=== PATIENT | male | born 1945 | race Caucasian/White ===

== ENCOUNTER 2020-11-02 04:07 | Outpatient (CLI) | payer OTHER, SELFPAY ==
[2020-11-03 17:44] LABS: PSA, Ultrasensitive <0.01 ng/mL (<= 6.5)
[2020-11-07 08:53] LABS: Testosterone, Total <7.0 ng/dL (240-950)
== END 2020-11-02 04:08 | disposition home or self-care (01) ==
LOC: LBO 04:07
PROVIDERS: PCP Nurse Practitioner; Visit Provider Radiology Radiation Oncology
DX: C61 Malignant neoplasm of prostate (principal)
CPT/HCPCS: 36415; 84153; 84403

== ENCOUNTER 2021-01-29 08:59 | Outpatient (REF) | payer OTHER, SELFPAY ==
[2021-01-29 15:02] LABS: HCT 36.9 % (40.0-50.0); HGB 11.9 g/dL (13.5-17.5); MCH 31.4 pg (27.0-33.0); MCHC 32.2 % (32.0-36.0); MCV 97.4 fL (80-95); MPV 11.7 fL (8.0-11.0); Platelet Count 168 10^3/uL (130-400); RBC 3.79 10^6/uL (4.36-5.78); RDW 13.4 % (11.8-14.1); RDW-SD 48.2 fL; WBC 3.73 10^3/uL (4.4-10.8)
[2021-01-29 15:46] LABS: ALT 35 U/L (16-63); AST 30 U/L (15-37); Albumin 3.6 g/dL (3.4-5.0); Alkaline Phosphatase 71 U/L (46-116); BUN 29 mg/dL (7-18); Bilirubin, Total 0.4 mg/dL (0.2-1.0); CREATININE 0.8 mg/dL (0.70-1.30); Calculated LDL 79 mg/dL (<100); Chloride 106 mmol/L (98-107); Cholesterol 163 mg/dL (<200); Glucose 109 mg/dL (74-106); HDL Cholesterol 69 mg/dL (40-60); Potassium 4.3 mmol/L (3.5-5.1); Sodium 142 mmol/L (136-145); Total Protein 7.4 g/dL (6.4-8.2); Triglyceride 77 mg/dL (<150)
== END 2021-01-29 09:00 | disposition home or self-care (01) ==
LOC: NCHCN 08:59
PROVIDERS: PCP Nurse Practitioner; Visit Provider Nurse Practitioner
DX: I10 Essential (primary) hypertension (principal); E78.5 Hyperlipidemia, unspecified
CPT/HCPCS: 80053; 80061; 85027

== ENCOUNTER 2021-02-05 11:12 | Outpatient (REF) | payer OTHER, SELFPAY ==
[2021-02-05 15:27] LABS: Iron 76 ug/dL (65-175); Total Iron Binding Capacity 282 ug/dL (250-450); Transferrin Sat 27 % (20-55)
[2021-02-05 15:52] LABS: Ferritin 528 ng/mL (26-388); Folate 19.7 ng/mL (8.6-20.0); Vitamin B12 213 pg/mL (193-986)
== END 2021-02-05 11:13 | disposition home or self-care (01) ==
LOC: NCHCN 11:12
PROVIDERS: PCP Nurse Practitioner; Visit Provider Nurse Practitioner
DX: D64.9 Anemia, unspecified (principal)
CPT/HCPCS: 82607; 82728; 82746; 83540; 83550

== ENCOUNTER 2021-04-30 04:06 | Outpatient (CLI) | payer OTHER, SELFPAY ==
[2021-05-02 11:17] LABS: PSA, Ultrasensitive <0.01 ng/mL (<= 6.5)
[2021-05-04 10:30] LABS: Testosterone, Total 8.1 ng/dL (240-950)
== END 2021-04-30 04:07 | disposition home or self-care (01) ==
PROVIDERS: PCP Nurse Practitioner; Visit Provider Radiology Radiation Oncology
DX: C61 Malignant neoplasm of prostate (principal)
CPT/HCPCS: 36415; 84153; 84403

== ENCOUNTER 2021-09-04 19:02 | Outpatient (REF) | payer OTHER, SELFPAY ==
[2021-09-04 15:48] LABS: Abs Immature Grans 0.02 10^3/uL (0.0-0.06); Absolute Basophil Count 0.01 10^3/uL (0.0-0.2); Absolute Lymphocyte Count 0.55 10^3/uL (1.2-3.4); Absolute Monocyte Count 0.44 10^3/uL (0.1-0.8); Absolute Neutrophil Count 3.11 10^3/uL (1.2-6.7); Basophils % 0.2; Eosinophils % 2.4; HCT 35.8 % (40.0-50.0); HGB 11.5 g/dL (13.5-17.5); Immature Grans % 0.5; MCHC 32.1 % (32.0-36.0); MCV 97 fL (80-95); MPV 11.4 fL (8.0-11.0); Monocytes % 10.4; Neutrophils % 73.5; Platelet Count 173 10^3/uL (130-400); RBC 3.71 10^6/uL (4.36-5.78); RDW 13.7 % (11.8-14.1); RDW-SD 49.1 fL; WBC 4.23 10^3/uL (4.4-10.8)
[2021-09-04 16:37] LABS: ALT 22 U/L (16-63); AST 25 U/L (15-37); Albumin 3.6 g/dL (3.4-5.0); Alkaline Phosphatase 80 U/L (46-116); Anion Gap 6.7 mmol/L (3-11); BUN 21 mg/dL (7-18); Bilirubin, Total 0.3 mg/dL (0.2-1.0); CO2 28.3 mmol/L (21.0-32.0); CREATININE 0.8 mg/dL (0.70-1.30); Calcium 8.5 mg/dL (8.5-10.1); Chloride 106 mmol/L (98-107); Glucose 94 mg/dL (74-106); Potassium 4.3 mmol/L (3.5-5.1); Sodium 141 mmol/L (136-145); Total Protein 7.3 g/dL (6.4-8.2)
== END 2021-09-04 19:03 | disposition home or self-care (01) ==
LOC: NCHCN 19:02
PROVIDERS: PCP Nurse Practitioner; Visit Provider Nurse Practitioner Family
DX: Z00.00 Encounter for general adult medical examination without abnormal findings (principal); I10 Essential (primary) hypertension; D64.9 Anemia, unspecified; E78.5 Hyperlipidemia, unspecified
CPT/HCPCS: 80053; 85025

== ENCOUNTER 2021-10-31 14:49 | Outpatient (REF) | payer OTHER, SELFPAY ==
[2021-10-31 15:26] LABS: HCT 38.2 % (40.0-50.0); HGB 12.7 g/dL (13.5-17.5); MCH 31.4 pg (27.0-33.0); MCHC 33.2 % (32.0-36.0); MCV 94 fL (80-95); MPV 11.4 fL (8.0-11.0); Platelet Count 162 10^3/uL (130-400); RBC 4.05 10^6/uL (4.36-5.78); RDW 13.5 % (11.8-14.1); RDW-SD 47.1 fL; WBC 3.22 10^3/uL (4.4-10.8)
[2021-10-31 15:57] LABS: Vitamin B12 427 pg/mL (193-986)
== END 2021-10-31 14:50 | disposition home or self-care (01) ==
LOC: NCHCN 14:49
PROVIDERS: PCP Nurse Practitioner; Visit Provider Nurse Practitioner Family
DX: D64.9 Anemia, unspecified (principal)
CPT/HCPCS: 85027; 82607

== ENCOUNTER 2021-11-01 02:29 | Outpatient (CLI) | payer OTHER, SELFPAY ==
[2021-11-06 11:52] LABS: PSA, Ultrasensitive <0.01 ng/mL (<= 6.5)
[2021-11-08 13:00] LABS: Testosterone, Total 331 ng/dL (240-950)
== END 2021-11-01 02:30 | disposition home or self-care (01) ==
PROVIDERS: PCP Nurse Practitioner; Visit Provider Radiology Radiation Oncology
DX: C61 Malignant neoplasm of prostate (principal)
CPT/HCPCS: 36415; 84153; 84403

== ENCOUNTER 2022-02-28 15:31 | Outpatient (REF) | payer OTHER, SELFPAY ==
[2022-02-28 15:07] LABS: Abs Immature Grans 0.02 10^3/uL (0.0-0.06); Absolute Basophil Count 0.02 10^3/uL (0.0-0.2); Absolute Eosinophil Count 0.31 10^3/uL (0.0-0.7); Absolute Monocyte Count 0.39 10^3/uL (0.1-0.8); Absolute Neutrophil Count 2.52 10^3/uL (1.2-6.7); Basophils % 0.5; Eosinophils % 7.6; HCT 36.1 % (40.0-50.0); HGB 11.9 g/dL (13.5-17.5); Immature Grans % 0.5; Lymphocytes % 19.7; MCH 30.9 pg (27.0-33.0); MCV 94 fL (80-95); MPV 11.3 fL (8.0-11.0); Monocytes % 9.6; Neutrophils % 62.1; Platelet Count 194 10^3/uL (130-400); RBC 3.85 10^6/uL (4.36-5.78); RDW 13.5 % (11.8-14.1); RDW-SD 46.5 fL; WBC 4.06 10^3/uL (4.4-10.8)
== END 2022-02-28 15:32 | disposition home or self-care (01) ==
LOC: NCHCN 15:31
PROVIDERS: PCP Nurse Practitioner; Visit Provider Nurse Practitioner Family
DX: D64.9 Anemia, unspecified (principal); I10 Essential (primary) hypertension
CPT/HCPCS: 85025

== ENCOUNTER 2022-04-22 16:22 | Outpatient (REF) | payer OTHER, SELFPAY ==
[2022-04-22 15:39] LABS: Abs Immature Grans 0.01 10^3/uL (0.0-0.06); Absolute Basophil Count 0.03 10^3/uL (0.0-0.2); Absolute Eosinophil Count 0.12 10^3/uL (0.0-0.7); Absolute Lymphocyte Count 0.51 10^3/uL (1.2-3.4); Absolute Neutrophil Count 3.88 10^3/uL (1.2-6.7); Basophils % 0.6; Eosinophils % 2.4; HCT 38.3 % (40.0-50.0); HGB 12.5 g/dL (13.5-17.5); Immature Grans % 0.2; Lymphocytes % 10.3; MCH 31.1 pg (27.0-33.0); MCHC 32.6 % (32.0-36.0); MCV 95 fL (80-95); MPV 11.8 fL (8.0-11.0); Monocytes % 8.1; Neutrophils % 78.4; Platelet Count 168 10^3/uL (130-400); RBC 4.02 10^6/uL (4.36-5.78); RDW 14.1 % (11.8-14.1); RDW-SD 49.2 fL; WBC 4.95 10^3/uL (4.4-10.8)
[2022-04-22 16:24] LABS: Vitamin B12 1018 pg/mL (193-986)
== END 2022-04-22 16:23 | disposition home or self-care (01) ==
LOC: NCHCN 16:22
PROVIDERS: PCP Nurse Practitioner; Visit Provider Nurse Practitioner Family
DX: Z00.00 Encounter for general adult medical examination without abnormal findings (principal)
CPT/HCPCS: 82607; 85025

== ENCOUNTER 2022-04-24 02:13 | Outpatient (CLI) | payer OTHER, SELFPAY ==
[2022-04-25 19:55] LABS: PSA, Ultrasensitive <0.01 ng/mL (<= 6.5)
[2022-04-27 16:00] LABS: Testosterone, Total 204 ng/dL (240-950)
== END 2022-04-24 02:14 | disposition home or self-care (01) ==
LOC: LBO 02:13
PROVIDERS: PCP Nurse Practitioner; Visit Provider Nurse Practitioner Family
DX: C61 Malignant neoplasm of prostate (principal)
CPT/HCPCS: 36415; 84153; 84403

== ENCOUNTER 2022-10-24 02:09 | Outpatient (CLI) | payer OTHER, SELFPAY ==
[2022-10-25 16:43] LABS: PSA, Ultrasensitive <0.01 ng/mL (<= 6.5)
[2022-10-29 01:35] LABS: Testosterone, Total 345 ng/dL (240-950)
== END 2022-10-24 02:10 | disposition home or self-care (01) ==
PROVIDERS: PCP Nurse Practitioner; Visit Provider Nurse Practitioner Family
DX: C61 Malignant neoplasm of prostate (principal)
CPT/HCPCS: 36415; 84153; 84403

== ENCOUNTER 2023-03-21 19:28 | Outpatient (REF) | payer OTHER, SELFPAY ==
[2023-03-21 19:07] LABS: Abs Immature Grans 0.02 10^3/uL (0.0-0.06); Absolute Basophil Count 0.02 10^3/uL (0.0-0.2); Absolute Eosinophil Count 0.12 10^3/uL (0.0-0.7); Absolute Lymphocyte Count 0.92 10^3/uL (1.2-3.4); Absolute Monocyte Count 0.45 10^3/uL (0.1-0.8); Absolute Neutrophil Count 2.79 10^3/uL (1.2-6.7); Basophils % 0.5; Eosinophils % 2.8; HCT 36.8 % (40.0-50.0); Immature Grans % 0.5; Lymphocytes % 21.3; MCH 30.8 pg (27.0-33.0); MCHC 32.6 % (32.0-36.0); MCV 94 fL (80-95); MPV 11.6 fL (8.0-11.0); Monocytes % 10.4; Neutrophils % 64.5; Platelet Count 160 10^3/uL (130-400); RDW 13.4 % (11.8-14.1); RDW-SD 46.4 fL; WBC 4.32 10^3/uL (4.4-10.8)
[2023-03-21 19:18] LABS: Anion Gap 6.7 mmol/L (3-11); BUN 21 mg/dL (7-18); CO2 28.3 mmol/L (21.0-32.0); CREATININE 0.9 mg/dL (0.70-1.30); Calcium 9.6 mg/dL (8.5-10.1); Chloride 105 mmol/L (98-107); Estimated GFR 87.42 (mL/min/1.73m2); Glucose 100 mg/dL (74-106); Potassium 3.9 mmol/L (3.5-5.1); Sodium 140 mmol/L (136-145)
== END 2023-03-21 19:29 | disposition home or self-care (01) ==
LOC: NCHCN 19:28
PROVIDERS: PCP Nurse Practitioner; Visit Provider Nurse Practitioner Family
DX: I10 Essential (primary) hypertension (principal); D64.9 Anemia, unspecified; R29.6 Repeated falls
CPT/HCPCS: 80048; 85025

== ENCOUNTER 2023-08-05 05:01 | Outpatient (CLI) | payer OTHER, SELFPAY ==
[2023-08-06 17:26] LABS: PSA, Ultrasensitive <0.01 ng/mL (<= 6.5)
== END 2023-08-05 05:02 | disposition home or self-care (01) ==
LOC: LBO 05:01
PROVIDERS: Visit Provider Colon & Rectal Surgery
DX: C61 Malignant neoplasm of prostate (principal)
CPT/HCPCS: 36415; 84153

== ENCOUNTER 2023-09-11 09:47 | Outpatient (RCR) | payer OTHER, SELFPAY ==
--- NOTE | 2023-09-11 09:45 | HOLTER_ITS ---
APPROVED REPORT Conclusion This is a 48-hour Holter monitor Rhythm throughout is sinus with an average heart rate of 67. Minimum was 50, maximum 98 There were very rare isolated atrial and ventricular ectopic beats There were 2 brief atrial runs, longest 4 beats in duration There was no atrial fibrillation, no high-grade AV block, no pauses greater than 3 seconds No symptoms were reported
== END 2023-10-03 23:59 | disposition home or self-care (01) ==
LOC: CARDOPNVT 09:47
PROVIDERS: PCP Nurse Practitioner Family; Visit Provider Internal Medicine Cardiovascular Disease
DX: R55 Syncope and collapse (principal)
CPT/HCPCS: 93225; 93226

== ENCOUNTER 2024-08-09 03:25 | Outpatient (CLI) | payer OTHER, SELFPAY ==
[2024-08-11 18:59] LABS: PSA, Ultrasensitive <0.01 ng/mL (<= 7.2)
== END 2024-08-09 03:26 | disposition home or self-care (01) ==
LOC: LBO 03:26
PROVIDERS: PCP Nurse Practitioner Family; Visit Provider Physician Assistant
DX: C61 Malignant neoplasm of prostate (principal)
CPT/HCPCS: 36415; 84153